=== PATIENT | male | born 1965 | race Caucasian/White ===

== ENCOUNTER 2020-08-13 08:38 | Outpatient (CLI) | payer OTHER, SELFPAY ==
[2020-08-13 09:14] LABS: Hematocrit 43.4 % (42.0-52.0); Hemoglobin 14.8 g/dL (14.0-18.0); Mean Corpuscular HGB Conc 34.1 g/dl (32-36); Mean Corpuscular Hemoglobin 30.6 pg (26-34); Mean Corpuscular Volume 89.9 fl (80-100); Mean Platelet Volume 9.4 fl (7.4-10.4); Platelet Count Result 274 k/mm3 (150-375); Red Blood Count 4.83 M/mm3 (4.6-6.20); Red Cell Distribution Width 12.5 % (11.5-14.5); White Blood Count 7.1 K/mm3 (4.5-10.0)
[2020-08-13 09:20] LABS: Alanine Aminotransferase 40 U/L (4-50); Albumin Level 4.4 g/dL (3.5-5.1); Alkaline Phosphatase 79 U/L (38-126); Anion Gap 8 mmol/L (8-16); Aspartate Amino Transferase 31 U/L (17-59); Bilirubin,Total 0.4 mg/dL (0.2-1.3); Blood Urea Nitrogen 9 mg/dL (9-20); Calcium 9.2 mg/dL (8.4-10.2); Carbon Dioxide 28 mmol/L (22-30); Chloride 105 mmol/L (98-107); Cholesterol 149 mg/dL (0-200); Estimated Glomerular Filt Rate > 60; Glucose 103 mg/dL (75-110); HDL Direct 43 mg/dL; Magnesium 1.9 mg/dL (1.6-2.3); Sodium 141 mmol/L (137-145); Triglycerides 83 mg/dL (<150)
[2020-08-13 09:33] LABS: LDL Cholesterol Direct 101 mg/dL
[2020-08-13 09:51] LABS: Prostate Specific Antigen 0.6 ng/mL (< OR = 4.0)
== END 2020-08-13 08:39 | disposition home or self-care (01) ==
PROVIDERS: PCP Physician Assistant; Visit Provider Physician Assistant
DX: Z00.00 Encounter for general adult medical examination without abnormal findings (principal); Z12.5 Encounter for screening for malignant neoplasm of prostate; I10 Essential (primary) hypertension
CPT/HCPCS: 36415; 80053; 80061; 83735; 84153; 84443; 85027; G0103

== ENCOUNTER 2020-10-05 09:15 | Outpatient (CLI) | payer OTHER, SELFPAY ==
[2020-10-05 09:53] LABS: Basophils Percent Auto 0.3 % (0.2-1.2); Eosinophils Absolute Auto 0.1 K/mm3 (0-0.3); Eosinophils Percent Auto 2.1 % (0-4.4); Hematocrit 42.9 % (42.0-52.0); Hemoglobin 14.4 g/dL (14.0-18.0); Immature Granulocyte Absolute 0.02 K/mm3 (0.00-0.031); Immature Granulocyte Percent A 0.5 % (0-0.5); Lymphocytes Absolute Auto 0.82 K/mm3 (0.9-3.2); Lymphocytes Percent Auto 21.6 % (18.3-44.2); Mean Corpuscular HGB Conc 33.6 g/dl (32-36); Mean Corpuscular Hemoglobin 29.5 pg (26-34); Mean Corpuscular Volume 87.9 fl (80-100); Mean Platelet Volume 9.8 fl (7.4-10.4); Monocytes Absolute Auto 0.4 K/mm3 (0.1-0.6); Neutrophils Absolute Auto 2.5 K/mm3 (1.3-6.7); Neutrophils Percent Auto 65.5 % (45.5-73.1); Platelet Count Result 242 k/mm3 (150-375); Red Blood Count 4.88 M/mm3 (4.6-6.20); Red Cell Distribution Width 12.6 % (11.5-14.5); White Blood Count 3.8 K/mm3 (4.5-10.0)
[2020-10-05 10:03] LABS: INR 0.9; Prothrombin Time 13.1 Seconds (11.1-14.7)
[2020-10-05 10:04] LABS: Partial Thromboplastin Time 26.2 SECONDS (22.3-36.8)
[2020-10-05 10:07] LABS: Alanine Aminotransferase 24 U/L (4-50); Albumin Level 4.2 g/dL (3.5-5.1); Alkaline Phosphatase 65 U/L (38-126); Anion Gap 8 mmol/L (8-16); Aspartate Amino Transferase 32 U/L (17-59); Bilirubin,Total 0.5 mg/dL (0.2-1.3); Blood Urea Nitrogen 5 mg/dL (9-20); Carbon Dioxide 29 mmol/L (22-30); Chloride 102 mmol/L (98-107); Cholesterol 104 mg/dL (0-200); Estimated Glomerular Filt Rate > 60; Glucose 99 mg/dL (75-110); HDL Direct 24 mg/dL; Potassium 3.8 mmol/L (3.4-5.0); Sodium 139 mmol/L (137-145); Triglycerides 134 mg/dL (<150)
[2020-10-05 10:18] LABS: LDL Cholesterol Direct 54 mg/dL
== END 2020-10-05 09:16 | disposition home or self-care (01) ==
PROVIDERS: PCP Physician Assistant
DX: L40.0 Psoriasis vulgaris (principal); Z51.81 Encounter for therapeutic drug level monitoring; Z79.899 Other long term (current) drug therapy
CPT/HCPCS: 36415; 80053; 80061; 85025; 85610; 85730

== ENCOUNTER 2020-11-15 08:23 | Outpatient (CLI) | payer OTHER, SELFPAY ==
[2020-11-15 09:16] LABS: Cholesterol 141 mg/dL (0-200); HDL Direct 28 mg/dL; Triglycerides 97 mg/dL (<150)
[2020-11-15 09:27] LABS: LDL Cholesterol Direct 90 mg/dL
== END 2020-11-15 08:24 | disposition home or self-care (01) ==
LOC: ANHLAB 08:27
PROVIDERS: PCP Physician Assistant
DX: L40.0 Psoriasis vulgaris (principal); Z79.899 Other long term (current) drug therapy
CPT/HCPCS: 36415; 80061

== ENCOUNTER 2021-01-16 14:43 | Outpatient (CLI) | payer OTHER, SELFPAY | END 2021-01-16 14:44 | disposition home or self-care (01) | LOC: ANHCOVIDVC 14:43 | PROVIDERS: PCP Physician Assistant | DX: Z23 Encounter for immunization (principal) | CPT/HCPCS: 0001A; 91300 ==

== ENCOUNTER 2021-02-06 14:42 | Outpatient (CLI) | payer OTHER, SELFPAY | END 2021-02-06 14:43 | disposition home or self-care (01) | LOC: ANHCOVIDVC 14:42 | PROVIDERS: PCP Physician Assistant | DX: Z23 Encounter for immunization (principal) | CPT/HCPCS: 0002A; 91300 ==

== ENCOUNTER 2021-02-15 08:02 | Outpatient (CLI) | payer OTHER, SELFPAY ==
[2021-02-15 12:25] LABS: Alanine Aminotransferase 23 U/L (4-50); Albumin Level 4.1 g/dL (3.5-5.1); Alkaline Phosphatase 65 U/L (38-126); Aspartate Amino Transferase 23 U/L (17-59); Bilirubin,Total 0.2 mg/dL (0.2-1.3); Cholesterol 120 mg/dL (0-200); HDL Direct 31 mg/dL; Triglycerides 57 mg/dL (<150)
[2021-02-15 12:37] LABS: LDL Cholesterol Direct 80 mg/dL
== END 2021-02-15 08:03 | disposition home or self-care (01) ==
PROVIDERS: PCP Physician Assistant
DX: L40.0 Psoriasis vulgaris (principal); Z79.899 Other long term (current) drug therapy
CPT/HCPCS: 36415; 80061; 80076

== ENCOUNTER 2021-04-13 08:49 | Outpatient (CLI) | payer OTHER, SELFPAY ==
[2021-04-13 09:37] LABS: Cholesterol 122 mg/dL (0-200); HDL Direct 30 mg/dL; Triglycerides 44 mg/dL (<150)
[2021-04-13 09:48] LABS: LDL Cholesterol Direct 74 mg/dL
== END 2021-04-13 08:50 | disposition home or self-care (01) ==
PROVIDERS: PCP Physician Assistant
DX: L40.0 Psoriasis vulgaris (principal); Z79.899 Other long term (current) drug therapy
CPT/HCPCS: 36415; 80061

== ENCOUNTER 2021-04-24 07:49 | Outpatient (CLI) | payer OTHER, SELFPAY ==
[2021-04-24 13:10] LABS: Basophils Percent Auto 0.4 % (0.2-1.2); Eosinophils Absolute Auto 0.1 K/mm3 (0-0.3); Eosinophils Percent Auto 1.4 % (0-4.4); Hematocrit 39.5 % (42.0-52.0); Hemoglobin 12.9 g/dL (14.0-18.0); Immature Granulocyte Absolute 0.01 K/mm3 (0.00-0.031); Immature Granulocyte Percent A 0.2 % (0-0.5); Lymphocytes Absolute Auto 1.49 K/mm3 (0.9-3.2); Lymphocytes Percent Auto 26.1 % (18.3-44.2); Mean Corpuscular HGB Conc 32.7 g/dl (32-36); Mean Corpuscular Hemoglobin 29.3 pg (26-34); Mean Corpuscular Volume 89.8 fl (80-100); Mean Platelet Volume 9.8 fl (7.4-10.4); Monocytes Absolute Auto 0.4 K/mm3 (0.1-0.6); Neutrophils Absolute Auto 3.7 K/mm3 (1.3-6.7); Neutrophils Percent Auto 64.9 % (45.5-73.1); Platelet Count Result 264 k/mm3 (150-375); Red Cell Distribution Width 13.8 % (11.5-14.5); White Blood Count 5.7 K/mm3 (4.5-10.0)
[2021-04-24 13:27] LABS: Alanine Aminotransferase 22 U/L (4-50); Albumin Level 4.2 g/dL (3.5-5.1); Alkaline Phosphatase 66 U/L (38-126); Anion Gap 11 mmol/L (8-16); Aspartate Amino Transferase 23 U/L (17-59); Bilirubin,Total 0.3 mg/dL (0.2-1.3); Blood Urea Nitrogen 7 mg/dL (9-20); Calcium 9.1 mg/dL (8.4-10.2); Carbon Dioxide 25 mmol/L (22-30); Chloride 105 mmol/L (98-107); Estimated Glomerular Filt Rate > 60; Glucose 95 mg/dL (75-110); Potassium 4.2 mmol/L (3.4-5.0); Sodium 141 mmol/L (137-145)
[2021-04-24 13:54] LABS: Hepatitis B Surface Antigen Negative (Negative)
[2021-04-24 14:00] LABS: HAV RESULT Negative (Negative); Hepatitis B Core IgM Result Negative (Negative)
[2021-04-24 14:03] LABS: HIV 1/2 Ab P24 Ag Result Negative (Negative)
[2021-04-24 14:11] LABS: Hepatitis C Virus Antibody Negative (Negative)
[2021-04-27 21:46] LABS: NIL 0.02 IU/mL; Quantiferon TB Plus, 1T NEGATIVE (NEGATIVE)
== END 2021-04-24 07:50 | disposition home or self-care (01) ==
LOC: ANHWCLAB 07:54
PROVIDERS: PCP Physician Assistant
DX: Z51.81 Encounter for therapeutic drug level monitoring (principal); Z79.899 Other long term (current) drug therapy; L40.0 Psoriasis vulgaris
CPT/HCPCS: 36415; 80053; 80074; 85025; 86480; 86703; G0432

== ENCOUNTER 2021-08-20 07:25 | Outpatient (CLI) | payer OTHER, SELFPAY ==
[2021-08-20 12:40] LABS: Hematocrit 42.4 % (42.0-52.0); Mean Platelet Volume 10.3 fl (7.4-10.4); Platelet Count Result 250 k/mm3 (150-375); Red Blood Count 4.51 M/mm3 (4.6-6.20); Red Cell Distribution Width 13.6 % (11.5-14.5); White Blood Count 5.5 K/mm3 (4.5-10.0)
[2021-08-20 14:07] LABS: LDL Cholesterol Direct 70 mg/dL
[2021-08-20 14:39] LABS: Alanine Aminotransferase 25 U/L (4-50); Albumin Level 4.1 g/dL (3.5-5.1); Alkaline Phosphatase 53 U/L (38-126); Anion Gap 8 mmol/L (8-16); Aspartate Amino Transferase 28 U/L (17-59); Bilirubin,Total 0.2 mg/dL (0.2-1.3); Blood Urea Nitrogen 7 mg/dL (9-20); Calcium 8.9 mg/dL (8.4-10.2); Carbon Dioxide 27 mmol/L (22-30); Chloride 106 mmol/L (98-107); Cholesterol 118 mg/dL (0-200); Estimated Glomerular Filt Rate > 60; Glucose 104 mg/dL (65-110); HDL Direct 46 mg/dL; Potassium 4.2 mmol/L (3.4-5.0); Sodium 141 mmol/L (137-145); Triglycerides 34 mg/dL (<150)
[2021-08-20 16:50] LABS: Prostate Specific Antigen 0.5 ng/mL (< OR = 4.0)
[2021-08-20 19:15] LABS: Folic Acid > 20.0 ng/mL (2.76->20)
== END 2021-08-20 07:26 | disposition home or self-care (01) ==
LOC: ANHWCLAB 07:28
PROVIDERS: PCP Physician Assistant; Visit Provider Physician Assistant
DX: Z12.5 Encounter for screening for malignant neoplasm of prostate (principal); Z00.00 Encounter for general adult medical examination without abnormal findings
CPT/HCPCS: 36415; 80053; 80061; 82607; 82746; 84153; 84443; 85027; G0103

== ENCOUNTER 2021-10-24 00:38 | Day surgery (SDC) | payer OTHER, SELFPAY ==
[2021-10-11 14:55] VITALS: BMI 35.1
--- NOTE | 2021-10-23 14:22 | PM.HPGS ---
History of Present Illness History of Present Illness Consent: Risks, benefits, and alternatives have been discussed and questions answered. Patient agrees to proceed with procedure. Chief complaint: hx of colon polyps, family hx of colon ca Narrative: Tee Isaacs is a 56 year old male referred for colon cancer screening. He had a polyp removed 5 years ago. His sister had colon cancer Review of Systems Review of Systems: All systems reviewed & are unremarkable except as noted in HPI and below PMFSH Past Medical History Medical History Hyperlipidemia Hypertension Family History Family History Mother Hypertension Father Cerebrovascular accident Sibling Carcinoma of colon Patient's sister is Father Cerebrovascular accident Mother Hypertension Sibling Colon cancer Social History Social History Smoking status: Former smoker Second hand tobacco smoke exposure: No Alcohol intake: current Alcohol use details: 15 drinks/week Substance use: never Substance use type: does not use Living arrangements: with family Meds Home Medications and Allergies Home Medications Medication Instructions Recorded Confirmed Type diphenhydramine HCl 25 mg tablet 25 mg PO Q6H PRN 08/17/20 10/11/21 History lysine 500 mg tablet 500 mg PO DAILY 08/17/20 10/11/21 History multivitamin 1 tablet PO DAILY 08/17/20 10/11/21 History atorvastatin 10 mg tablet 10 mg PO DAILY #90 tablet 05/20/21 10/11/21 Rx sertraline 50 mg tablet See Rx Instructions .ROUTE 06/10/21 10/11/21 Rx .COMPLEX #90 tablet alprazolam 0.5 mg tablet 0.5 mg PO BID PRN #180 tablet 08/23/21 10/24/21 Rx apple cider vinegar 500 mg tablet 500 mg PO DAILY 08/23/21 10/11/21 History lisinopril 10 mg tablet 10 mg PO DAILY #90 tablet 08/23/21 10/11/21 Rx omega-3 fatty acids 500 mg capsule 500 mg PO DAILY 08/23/21 10/11/21 History risankizumab-rzaa 150 mg SUBCUT ONCE #1 ea 08/25/21 10/11/21 Rx Allergies Allergy/AdvReac Type Severity Reaction Status Date / Time No Known Allergies Allergy Verified 10/24/21 08:30 Exam Resp: Auscultation: clear to auscultation bilaterally Cardio: Rate: regular rate Rhythm: regular rhythm GI: GI Palp: Yes Soft to palpation and No Tenderness to palpation present (GI) Assessment and Plan Assessment and plan (1) Colon cancer screening: Code(s): Z12.11 - Encounter for screening for malignant neoplasm of colon Status: Acute Assessment and Plan: Colonoscopy with possible biopsy or polypectomy or cautery or injection of substances.
[2021-10-24 08:31] VITALS: BP 130/90; PULSE 71; RESP 18; TEMP 36.6; O2SAT 96
--- NOTE | 2021-10-24 08:34 | P.PNAN_ITS ---
Anes - Initial Pre Proc Eval Procedure: Operation Date: 10/24/21 09:30 Proposed Procedures p Screening Colonoscopy - Guilherme Porter MD Date/Time: 10/24/21 08:34 Surgeon: Guilherme Porter MD Pre Op Diagnosis: hx of colon polyps, family hx of colon ca Patient Data Age: 56 Gender: M Height: 1.78 m Weight: 111 kg Last Vital Signs Temp 36.6 C 10/24/21 08:31 Pulse 71 10/24/21 08:31 Resp 18 10/24/21 08:31 BP 130/90 10/24/21 08:31 Pulse Ox 96 10/24/21 08:31 Allergies Allergy/AdvReac Type Severity Reaction Status Date / Time No Known Allergies Allergy Verified 10/24/21 08:30 Home Medications Medication Instructions Recorded Confirmed Type diphenhydramine HCl 25 mg tablet 25 mg PO Q6H PRN 08/17/20 10/11/21 History lysine 500 mg tablet 500 mg PO DAILY 08/17/20 10/11/21 History multivitamin 1 tablet PO DAILY 08/17/20 10/11/21 History atorvastatin 10 mg tablet 10 mg PO DAILY #90 tablet 05/20/21 10/11/21 Rx sertraline 50 mg tablet See Rx Instructions .ROUTE 06/10/21 10/11/21 Rx .COMPLEX #90 tablet alprazolam 0.5 mg tablet 0.5 mg PO BID PRN #180 tablet 08/23/21 10/24/21 Rx apple cider vinegar 500 mg tablet 500 mg PO DAILY 08/23/21 10/11/21 History lisinopril 10 mg tablet 10 mg PO DAILY #90 tablet 08/23/21 10/11/21 Rx omega-3 fatty acids 500 mg capsule 500 mg PO DAILY 08/23/21 10/11/21 History risankizumab-rzaa 150 mg SUBCUT ONCE #1 ea 08/25/21 10/11/21 Rx Patient hx anesthesia problems: none Family hx anesthesia problems: none Results Review: All pre-operative results and documents have been reviewed as part of the pre-operative evaluation. [facility] Past Medical History Medical History (Updated 10/24/21 @ 07:40 by Zain Nobles DO) Hyperlipidemia Hypertension Family History Family History Mother Hypertension Father Cerebrovascular accident Sibling Carcinoma of colon Patient's sister is Father Cerebrovascular accident Mother Hypertension Sibling Colon cancer Social History Social History Smoking status: Former smoker Second hand tobacco smoke exposure: No Alcohol intake: current Alcohol use details: 15 drinks/week Substance use: never Substance use type: does not use Living arrangements: with family Anes - Eval Final PreProcedure Day of Procedure 10/24/21 08:34 Patient weight: obese Heart: regular rate and rhythm Lungs: clear to auscultation and normal air movement Airway: Mallampati scale class III Neurological: alert and oriented Last oral intake: >/= 8 hours ASA classification: III Emergent: no Anesthetic plan: proceed Anesthesia type and monitoring: general GIVS and standard monitoring Results Review: All pre-operative results and documents have been reviewed as part of the pre-operative evaluation. Informed Consent: The patient's anesthetic plan and its attendant risks and robyn efits were discussed with the patient/family/POA. Questions were solicited and answers provided to the satisfaction of the patient/family/POA.
[2021-10-24] MEDS: LACTATED RINGERS 1,000 ML 150 ML IV CONT (08:48)
[2021-10-24 09:44] VITALS: BP 124/69; PULSE 75; RESP 18; O2SAT 100
[2021-10-24] MEDS: SIMETHICONE ORAL SUSPENSION 20 MG/0.3 ML 30 ML BOTTLE 0.6 ML IRRIGATION (09:44)
[2021-10-24 09:54] VITALS: BP 130/83; PULSE 65; RESP 18; O2SAT 98
[2021-10-24 10:01] VITALS: BP 132/92; PULSE 66; RESP 18; O2SAT 100
== END 2021-10-24 10:09 | disposition home or self-care (01) ==
PROVIDERS: PCP Physician Assistant; Visit Provider Internal Medicine Gastroenterology
PROC: 0DJD8ZZ Inspection of Lower Intestinal Tract, Via Natural or Artificial Opening Endoscopic (ICD-10-PCS; CPT 45378; principal; 2021-10-24 09:30)
DX: Z12.11 Encounter for screening for malignant neoplasm of colon (principal); K64.8 Other hemorrhoids; K57.30 Diverticulosis of large intestine without perforation or abscess without bleeding; Z80.0 Family history of malignant neoplasm of digestive organs; Z86.010 Personal history of colon polyps; I10 Essential (primary) hypertension; E78.5 Hyperlipidemia, unspecified; Z87.891 Personal history of nicotine dependence; E66.9 Obesity, unspecified; Z68.35 Body mass index [BMI] 35.0-35.9, adult
CPT/HCPCS: 45378; J2001; J2704; J7120

== ENCOUNTER 2022-06-02 07:40 | Outpatient (CLI) | payer OTHER, SELFPAY ==
[2022-06-02 13:18] LABS: Basophils Percent Auto 0.4 % (0.2-1.2); Eosinophils Absolute Auto 0.1 K/mm3 (0-0.3); Hematocrit 45.1 % (42.0-52.0); Hemoglobin 14.5 g/dL (14.0-18.0); Immature Granulocyte Absolute 0.01 K/mm3 (0.00-0.031); Immature Granulocyte Percent A 0.2 % (0-0.5); Lymphocytes Percent Auto 29.8 % (18.3-44.2); Mean Corpuscular HGB Conc 32.2 g/dl (32-36); Mean Corpuscular Hemoglobin 30.7 pg (26-34); Mean Corpuscular Volume 95.6 fl (80-100); Mean Platelet Volume 10.1 fl (7.4-10.4); Monocytes Absolute Auto 0.4 K/mm3 (0.1-0.6); Monocytes Percent Auto 8.1 % (2.6-8.5); Neutrophils Absolute Auto 3.1 K/mm3 (1.3-6.7); Neutrophils Percent Auto 60.5 % (45.5-73.1); Platelet Count Result 219 k/mm3 (150-375); Red Blood Count 4.72 M/mm3 (4.6-6.20); Red Cell Distribution Width 13.4 % (11.5-14.5)
[2022-06-02 13:24] LABS: Alanine Aminotransferase 23 U/L (6-50); Albumin Level 4.5 g/dL (3.5-5.1); Alkaline Phosphatase 58 U/L (38-126); Anion Gap 10 mmol/L (8-16); Aspartate Amino Transferase 47 U/L (17-59); Bilirubin,Total 0.6 mg/dL (0.2-1.3); Blood Urea Nitrogen 11 mg/dL (9-20); Calcium 8.8 mg/dL (8.4-10.2); Carbon Dioxide 26 mmol/L (22-30); Chloride 105 mmol/L (98-107); Estimated Glomerular Filt Rate > 60; Glucose 95 mg/dL (65-110); Potassium 4.1 mmol/L (3.4-5.0); Sodium 141 mmol/L (137-145)
[2022-06-04 13:07] LABS: NIL 0.01 IU/mL; Quantiferon TB Plus, 1T NEGATIVE (NEGATIVE)
== END 2022-06-02 07:41 | disposition home or self-care (01) ==
PROVIDERS: PCP Physician Assistant
DX: L40.0 Psoriasis vulgaris (principal); Z79.899 Other long term (current) drug therapy
CPT/HCPCS: 36415; 80053; 85025; 86480

== ENCOUNTER 2022-11-17 08:01 | Outpatient (CLI) | payer OTHER, SELFPAY ==
[2022-11-17 18:34] LABS: Cholesterol 140 mg/dL (0-200); HDL Direct 53 mg/dL; Triglycerides 35 mg/dL (<150)
[2022-11-17 18:46] LABS: LDL Cholesterol Direct 63 mg/dL
[2022-11-17 19:09] LABS: Prostate Specific Antigen 0.6 ng/mL (< OR = 4.0)
[2022-11-17 20:13] LABS: Folic Acid > 20.0 ng/mL (2.76->20)
== END 2022-11-17 08:02 | disposition home or self-care (01) ==
LOC: ANHWCLAB 08:02
PROVIDERS: PCP Physician Assistant; Visit Provider Physician Assistant
DX: Z00.00 Encounter for general adult medical examination without abnormal findings (principal); Z12.5 Encounter for screening for malignant neoplasm of prostate
CPT/HCPCS: 36415; 80061; 82607; 82746; 84153; 84443; G0103

== ENCOUNTER 2022-12-15 08:14 | Outpatient (CLI) | payer OTHER, SELFPAY ==
[2022-12-15 12:47] LABS: Creatine Kinase 49 U/L (55-170)
== END 2022-12-15 08:15 | disposition home or self-care (01) ==
LOC: ANHWCLAB 08:29
PROVIDERS: PCP Physician Assistant
DX: L40.0 Psoriasis vulgaris (principal); Z79.899 Other long term (current) drug therapy
CPT/HCPCS: 36415; 82550

== ENCOUNTER 2023-02-09 08:00 | Outpatient (CLI) | payer OTHER, SELFPAY ==
[2023-02-09 16:46] LABS: Basophils Percent Auto 0.4 % (0.2-1.2); Eosinophils Absolute Auto 0.1 K/mm3 (0-0.3); Eosinophils Percent Auto 1.7 % (0-4.4); Hematocrit 44.6 % (42.0-52.0); Hemoglobin 14.8 g/dL (14.0-18.0); Immature Granulocyte Absolute 0.01 K/mm3 (0.00-0.031); Immature Granulocyte Percent A 0.2 % (0-0.5); Lymphocytes Percent Auto 32.3 % (18.3-44.2); Mean Corpuscular HGB Conc 33.2 g/dl (32-36); Mean Corpuscular Hemoglobin 31.6 pg (26-34); Mean Corpuscular Volume 95.1 fl (80-100); Mean Platelet Volume 10.1 fl (7.4-10.4); Monocytes Absolute Auto 0.4 K/mm3 (0.1-0.6); Monocytes Percent Auto 7.7 % (2.6-8.5); Neutrophils Absolute Auto 2.7 K/mm3 (1.3-6.7); Neutrophils Percent Auto 57.7 % (45.5-73.1); Platelet Count Result 225 k/mm3 (150-375); Red Blood Count 4.69 M/mm3 (4.6-6.20); Red Cell Distribution Width 12.6 % (11.5-14.5); White Blood Count 4.7 K/mm3 (4.5-10.0)
[2023-02-09 17:41] LABS: Alanine Aminotransferase 31 U/L (6-50); Albumin Level 4.4 g/dL (3.5-5.1); Alkaline Phosphatase 54 U/L (38-126); Aspartate Amino Transferase 47 U/L (17-59); Bilirubin,Total 0.6 mg/dL (0.2-1.3)
== END 2023-02-09 08:01 | disposition home or self-care (01) ==
LOC: ANHWCLAB 08:03
PROVIDERS: PCP Physician Assistant
DX: L40.0 Psoriasis vulgaris (principal); Z79.899 Other long term (current) drug therapy
CPT/HCPCS: 36415; 80076; 85025

== ENCOUNTER 2023-03-16 08:34 | Outpatient (CLI) | payer OTHER, SELFPAY ==
[2023-03-16 17:19] LABS: Basophils Percent Auto 0.5 % (0.2-1.2); Eosinophils Absolute Auto 0.1 K/mm3 (0-0.3); Eosinophils Percent Auto 1.1 % (0-4.4); Hematocrit 45.1 % (42.0-52.0); Hemoglobin 14.8 g/dL (14.0-18.0); Immature Granulocyte Absolute 0.01 K/mm3 (0.00-0.031); Immature Granulocyte Percent A 0.2 % (0-0.5); Lymphocytes Absolute Auto 1.57 K/mm3 (0.9-3.2); Lymphocytes Percent Auto 28.8 % (18.3-44.2); Mean Corpuscular HGB Conc 32.8 g/dl (32-36); Mean Corpuscular Hemoglobin 31.8 pg (26-34); Mean Corpuscular Volume 96.8 fl (80-100); Mean Platelet Volume 9.9 fl (7.4-10.4); Monocytes Absolute Auto 0.4 K/mm3 (0.1-0.6); Monocytes Percent Auto 6.6 % (2.6-8.5); Neutrophils Absolute Auto 3.4 K/mm3 (1.3-6.7); Neutrophils Percent Auto 62.8 % (45.5-73.1); Platelet Count Result 225 k/mm3 (150-375); Red Blood Count 4.66 M/mm3 (4.6-6.20); Red Cell Distribution Width 13.2 % (11.5-14.5); White Blood Count 5.5 K/mm3 (4.5-10.0)
[2023-03-16 17:26] LABS: Alanine Aminotransferase 32 U/L (6-50); Albumin Level 4.5 g/dL (3.5-5.1); Alkaline Phosphatase 55 U/L (38-126); Aspartate Amino Transferase 75 U/L (17-59); Bilirubin,Total 0.5 mg/dL (0.2-1.3)
== END 2023-03-16 08:35 | disposition home or self-care (01) ==
LOC: ANHWCLAB 08:36
PROVIDERS: PCP Physician Assistant
DX: L40.0 Psoriasis vulgaris (principal); Z79.899 Other long term (current) drug therapy
CPT/HCPCS: 36415; 80076; 85025

== ENCOUNTER 2023-03-30 08:35 | Outpatient (CLI) | payer OTHER, SELFPAY ==
[2023-03-30 13:10] LABS: Alanine Aminotransferase 36 U/L (6-50); Albumin Level 4.4 g/dL (3.5-5.1); Alkaline Phosphatase 57 U/L (38-126); Aspartate Amino Transferase 60 U/L (17-59); Bilirubin,Total 0.6 mg/dL (0.2-1.3)
== END 2023-03-30 08:36 | disposition home or self-care (01) ==
LOC: ANHWCLAB 08:37
PROVIDERS: PCP Physician Assistant
DX: L40.0 Psoriasis vulgaris (principal); Z79.899 Other long term (current) drug therapy
CPT/HCPCS: 36415; 80076

== ENCOUNTER 2023-04-21 08:18 | Outpatient (CLI) | payer OTHER, SELFPAY ==
[2023-04-21 12:47] LABS: Basophils Percent Auto 0.4 % (0.2-1.2); Eosinophils Absolute Auto 0.1 K/mm3 (0-0.3); Eosinophils Percent Auto 1.1 % (0-4.4); Hematocrit 43.2 % (42.0-52.0); Hemoglobin 14.6 g/dL (14.0-18.0); Immature Granulocyte Absolute 0.01 K/mm3 (0.00-0.031); Immature Granulocyte Percent A 0.2 % (0-0.5); Lymphocytes Absolute Auto 1.41 K/mm3 (0.9-3.2); Lymphocytes Percent Auto 30.4 % (18.3-44.2); Mean Corpuscular HGB Conc 33.8 g/dl (32-36); Mean Corpuscular Hemoglobin 31.8 pg (26-34); Mean Corpuscular Volume 94.1 fl (80-100); Mean Platelet Volume 10.5 fl (7.4-10.4); Monocytes Absolute Auto 0.3 K/mm3 (0.1-0.6); Neutrophils Absolute Auto 2.9 K/mm3 (1.3-6.7); Neutrophils Percent Auto 61.9 % (45.5-73.1); Platelet Count Result 209 k/mm3 (150-375); Red Blood Count 4.59 M/mm3 (4.6-6.20); Red Cell Distribution Width 12.9 % (11.5-14.5); White Blood Count 4.6 K/mm3 (4.5-10.0)
[2023-04-21 13:02] LABS: Alanine Aminotransferase 28 U/L (6-50); Albumin Level 4.1 g/dL (3.5-5.1); Alkaline Phosphatase 47 U/L (38-126); Anion Gap 5 mmol/L (8-16); Aspartate Amino Transferase 27 U/L (17-59); Bilirubin,Total 0.5 mg/dL (0.2-1.3); Blood Urea Nitrogen 9 mg/dL (9-20); Calcium 8.5 mg/dL (8.4-10.2); Carbon Dioxide 26 mmol/L (22-30); Chloride 107 mmol/L (98-107); Cholesterol 141 mg/dL (0-200); Estimated Glomerular Filt Rate > 60; Glucose 93 mg/dL (65-110); HDL Direct 45 mg/dL; Potassium 4.1 mmol/L (3.4-5.0); Sodium 138 mmol/L (137-145); Triglycerides 76 mg/dL (<150)
[2023-04-21 13:13] LABS: LDL Cholesterol Direct 85 mg/dL
[2023-04-21 13:31] LABS: Hepatitis B Surface Antigen Negative (Negative)
[2023-04-21 13:48] LABS: Hepatitis B Surface Anti Res Negative; Hepatitis C Virus Antibody Negative (Negative)
[2023-04-23 16:13] LABS: NIL 0.02 IU/mL; Quantiferon TB Plus, 1T NEGATIVE (NEGATIVE)
[2023-04-26 03:47] LABS: Hepatitis B Core Ab Total Nonreactive (Nonreactive)
== END 2023-04-21 08:19 | disposition home or self-care (01) ==
LOC: ANHWCLAB 08:21
PROVIDERS: PCP Physician Assistant
DX: R21 Rash and other nonspecific skin eruption (principal)
CPT/HCPCS: 36415; 80053; 80061; 85025; 86480; 86704; 86706; 86803; 87340

== ENCOUNTER 2023-08-31 08:57 | Outpatient (CLI) | payer OTHER, SELFPAY ==
[2023-08-31 12:33] LABS: Basophils Percent Auto 0.5 % (0.2-1.2); Eosinophils Percent Auto 0.5 % (0-4.4); Hematocrit 39.3 % (42.0-52.0); Hemoglobin 13.2 g/dL (14.0-18.0); Immature Granulocyte Absolute 0.02 K/mm3 (0.00-0.031); Immature Granulocyte Percent A 0.5 % (0-0.5); Lymphocytes Percent Auto 35.2 % (18.3-44.2); Mean Corpuscular HGB Conc 33.6 g/dl (32-36); Mean Corpuscular Hemoglobin 32.6 pg (26-34); Monocytes Absolute Auto 0.3 K/mm3 (0.1-0.6); Neutrophils Absolute Auto 2.2 K/mm3 (1.3-6.7); Neutrophils Percent Auto 55.3 % (45.5-73.1); Platelet Count Result 252 k/mm3 (150-375); Red Blood Count 4.05 M/mm3 (4.6-6.20); Red Cell Distribution Width 12.6 % (11.5-14.5)
[2023-08-31 12:41] LABS: Alanine Aminotransferase 34 U/L (6-50); Albumin Level 4.2 g/dL (3.5-5.1); Alkaline Phosphatase 44 U/L (38-126); Anion Gap 6 mmol/L (8-16); Aspartate Amino Transferase 60 U/L (17-59); Bilirubin,Total 0.6 mg/dL (0.2-1.3); Blood Urea Nitrogen 9 mg/dL (9-20); Calcium 8.9 mg/dL (8.4-10.2); Carbon Dioxide 25 mmol/L (22-30); Chloride 106 mmol/L (98-107); Cholesterol 182 mg/dL (0-200); Estimated Glomerular Filt Rate > 60; Glucose 93 mg/dL (65-110); HDL Direct 58 mg/dL; Potassium 4.1 mmol/L (3.4-5.0); Sodium 137 mmol/L (137-145); Triglycerides 90 mg/dL (<150)
[2023-08-31 12:52] LABS: LDL Cholesterol Direct 96 mg/dL
== END 2023-08-31 08:58 | disposition home or self-care (01) ==
LOC: ANHWCLAB 08:58
PROVIDERS: PCP Physician Assistant
DX: R21 Rash and other nonspecific skin eruption (principal)
CPT/HCPCS: 36415; 80053; 80061; 85025

== ENCOUNTER 2024-08-12 09:08 | Outpatient (CLI) | payer OTHER, SELFPAY ==
[2024-08-12 09:35] LABS: Basophils Percent Auto 0.4 % (0.2-1.2); Eosinophils Absolute Auto 0.1 K/mm3 (0-0.3); Eosinophils Percent Auto 1.6 % (0-4.4); Hematocrit 44.6 % (42.0-52.0); Hemoglobin 15.3 g/dL (14.0-18.0); Immature Granulocyte Absolute 0.02 K/mm3 (0.00-0.031); Immature Granulocyte Percent A 0.4 % (0-0.5); Lymphocytes Absolute Auto 1.51 K/mm3 (0.9-3.2); Lymphocytes Percent Auto 26.7 % (18.3-44.2); Mean Corpuscular HGB Conc 34.3 g/dl (32-36); Mean Corpuscular Hemoglobin 31.6 pg (26-34); Mean Corpuscular Volume 92.1 fl (80-100); Mean Platelet Volume 9.6 fl (7.4-10.4); Monocytes Absolute Auto 0.4 K/mm3 (0.1-0.6); Monocytes Percent Auto 7.8 % (2.6-8.5); Neutrophils Absolute Auto 3.6 K/mm3 (1.3-6.7); Neutrophils Percent Auto 63.1 % (45.5-73.1); Platelet Count Result 260 k/mm3 (150-375); Red Blood Count 4.84 M/mm3 (4.6-6.20); Red Cell Distribution Width 12.7 % (11.5-14.5); White Blood Count 5.7 K/mm3 (4.5-10.0)
[2024-08-12 09:56] LABS: Hemoglobin A1C 5.6 % (<5.7)
[2024-08-12 09:57] LABS: LDL Cholesterol Direct 77 mg/dL
[2024-08-12 10:00] LABS: Alanine Aminotransferase 31 U/L (6-50); Albumin Level 4.6 g/dL (3.5-5.1); Alkaline Phosphatase 52 U/L (38-126); Anion Gap 6 mmol/L (4-12); Aspartate Amino Transferase 34 U/L (17-59); Bilirubin,Total 0.7 mg/dL (0.2-1.3); Blood Urea Nitrogen 9 mg/dL (9-20); Calcium 8.9 mg/dL (8.4-10.2); Carbon Dioxide 27 mmol/L (22-30); Chloride 104 mmol/L (98-107); Cholesterol 152 mg/dL (0-200); Estimated Glomerular Filt Rate > 60; Glucose 101 mg/dL (65-110); HDL Direct 45 mg/dL; Potassium 4.1 mmol/L (3.4-5.0); Sodium 137 mmol/L (137-145); Triglycerides 119 mg/dL (<150)
[2024-08-12 10:16] LABS: Prostate Specific Antigen 0.6 ng/mL (< OR = 4.0)
== END 2024-08-12 09:09 | disposition home or self-care (01) ==
PROVIDERS: PCP Family Medicine; Visit Provider Student in an Organized Health Care Education/Training Program
DX: E78.5 Hyperlipidemia, unspecified (principal); Z13.1 Encounter for screening for diabetes mellitus; Z12.5 Encounter for screening for malignant neoplasm of prostate; Z00.00 Encounter for general adult medical examination without abnormal findings
CPT/HCPCS: 36415; 80053; 80061; 83036; 84153; 85025; G0103

== ENCOUNTER 2025-02-17 10:11 | Outpatient (CLI) | payer OTHER, SELFPAY ==
--- OUTSIDE RECORDS SUMMARY | 2025-02-17 10:46 | XMS_ITS | Clinical Summary ---
Author Organization [facility] Address [address] [place] [address] Care Team Providers Care Pattern Maker Programer Name Role Phone Loco Mccloud PA-C Primary Care Provide r Source Comments [facility],non-owned Affiliates and Associated Physician Practices is amultiple site organization consisting of ambulatory clinics and hospital sitesin [place], [place], [place] and [place]. This disclosure is being madepursuant to the Care Everywhere program and may not contain all information available regarding this patient. Last updated 18.[facility] [employer] Allergies No known active allergies Medications * Be aware that medications may not be up to date on this document. Alwaysverify current medications with the patient. Medication Sig Dispensed Refills Start Date End Date Status atorvastatin (Lipitor) 10 MG tablet 01/25/2023 Active lisinopril (Prinivil; Zestril) 10 MG tablet 02/07/2023 Active sertraline (Zoloft) 50 MG tablet 02/21/2023 Active ALPRAZolam (Xanax) 0.5 MG tablet 06/22/2023 Active triamcinolone acetonide (Kenalog) 0.1 % ointment Apply to body twice daily. 30 days supply. 454 g 3 09/08/2023 Active clobetasol (Temovate) 0.05 % ointment Apply to affected area on the lower legs twice daily. 30 days supply. 60 g 5 09/08/2023 Active dupilumab (Dupixent) 300 MG/2ML prefilled penIndications:Samy pic Dermatitis Inject 600 mg subcutaneously on Day 1 Reasons: Atopic Dermatitis 4 mL 10/09/2023 Active dupilumab (Dupixent) 300 MG/2ML prefilled penIndications:Samy pic Dermatitis Inject 300 mg subcutaneously every 2 weeks starting on Day 15 Reasons: Atopic Dermatitis 4 mL 6 10/09/2023 Active Social History Tobacco Use Types Packs/Day Years Used Date Smoking Tobacco: Never Assessed Sex and Gender Information Value Date Recorded Sex Assigned at Not on file Gender Identity Not on file Sexual Orientation Not on file Plan of Treatment Health Maintenance Due Date Last Done Comments COLOGUARD (AGES 45-75) - COL ON CA SCREENING 1966 COLON MONITORING 1966 COLONOSCOPY - COLON CA SCREENING 1966 CT COLONOGRAPHY - COLON CA SCREENING 1966 Colorectal Cancer Screening 1966 FIT - COLON CA SCREENING 1966 FLEX SIG - COLON CA SCREENING 1966 HIV SCREENING 1981 HEPATITIS C SCREENING 12/31/1983 DTAP/TDAP/TD VACCINES (1 - Tdap) 1985 HEPATITIS B VACCINE (1 of 3 - 19+ 3-dose series) 1985 PNEUMOCOCCAL VACCINE 50+ (1 of 1 - PCV) 2016 ZOSTER VACCINE (1 of 2) 2016 COVID-19 VACCINE ( - 2023-2 5 season) 2024 DEPRESSION SCREENING 11/09/2024 INFLUENZA VACCINE (Season Ended) 2025 HIB VACCINE Aged Out No longer eligi ble based on patient's age to complete this topic HPV VACCINE Aged Out No longer eligi ble based on patient's age to complete this topic MENINGOCOCCAL (Group B) VACC INE SHARED DECISION-MAKING Aged Out No longer eligibl e based on patient's age to complete this topic MENINGOCOCCAL GROUPS A/C/Y/W VACCINE Aged Out No longer eligible b ased on patient's age to complete this topic PNEUMOCOCCAL VACCINE Aged Out No long er eligible based on patient's age to complete this topic Care Teams Pattern Maker Programer Relationship Specialty Start Date End Date Loco Mccloud PA-C [address] [place], [place] [phone] PCP - General Physician Medical Chemist 04/09/23
--- OUTSIDE RECORDS SUMMARY | 2025-02-17 10:46 | XMS_ITS | Encounter Summary ---
Author Organization [facility] Address [address] [facility] [place] [address] Care Team Providers Care Support Staff Name Role Phone Loco Mccloud PA-C Primary Care Provide r Encounter Details Date Type Department Care Team (Late st Contact Info) Description 04/03/2023 Lab Requisition [facility] - DermPath Lab [address] [place] [phone] Efren Ferraro MD [address] [place] [address] Social History Tobacco Use Types Packs/Day Years Used Date Smoking Tobacco: Never Assessed Sex and Gender Information Value Date Recorded Sex Assigned at Not on file Gender Identity Not on file Sexual Orientation Not on file documented as of this encounter Plan of Treatment Not on file documented as of this encounter Procedures Procedure Name Priority Date/Time Associated Diagnosis Comments DERMATOPATHOLOGY Routine 04/02/2023 3:33 AM CDT documented in this encounter Results * DERMATOPATHOLOGY (04/02/2023 3:33 AM CDT) Case Report Dermatopathology Report Case: [id number] Authorizing Provider: Efren Ferraro MD Collected: 04/02/2023 03:33 AM Ordering Location: [facility] DermPath Lab Received: 04/03/2023 08:15 AM Pathologist: Evelyn Franz MD Specimen: Skin, right upper back 9:48 AM CDT DERMATOPATHOLOGY LABORATORY Final Diagnosis Specimen A. SKIN, right upper back: PSORIASIFORM DERMATITIS (L44.8) (see microscopic description and comment) 3 9:48 AM CDT DERMATOPATHOLOGY LABORATORY Clinical History Psoriasis vs Drug Eruption 9:48 AM CDT DERMATOPATHOLOGY LABORATORY Gross Description Specimen A: Received is one formalin filled container labeled with the patient's name and designated right upper back. The specimen consists of two shave biopsies measuring 11x8x1 and 2x2x1 mm. Jar 0. 3 9:48 AM CDT DERMATOPATHOLOGY LABORATORY Microscopic Description Specimen A. SKIN, right upper back: There is psoriasiform hyperplasia of the epidermis with focal parakeratosis and spongiosis. Significant hypogranulosis is not appreciated. There is a superficial, mainly lymphohistiocytic inflammatory infiltrate. Eosinophils are not seen. IL-36 immunostain reveals patchy staining in the superficial aspect of the epidermis. Grocott's methenamine silver (GMS) stain fails to highlight fungal elements in the available sections. COMMENT: The histological differential diagnosis includes a chronic eczematous dermatitis, which is favored; less likely a hypersensitivity reaction, such as to contact or drug, given the lack of eosinophils; and early / partially treated psoriasis, given the lack of more significant IL-36 staining. 3 9:48 AM CDT DERMATOPATHOLOGY LABORATORY Disclaimer An external and internal positive and negative controls are appropriate for the histochemical, immunohistochemical and immunofluorescence stain(s) in this case (if any), except where stated explicitly. The performance characteristics of the stain(s) cited in this report were developed and its performance characteristic determined by the Dermatopathology Laboratory at [facility], directed by Dr. Davonte Gorman. These tests need not be, and therefore are not, approved by the [place] Food and Drug Administration. The tests are used for clinical purposes. Billing Codes Specimen Charges Stain Charges 36078 1 92714 23847 1 1 3 9:48 AM CDT DERMATOPATHOLOGY LABORATORY Embedded Images 9:48 AM CDT DERMATOPATHOLOGY LABORATORY Pathology/Cytolo gy TISSUE SPECIMEN FROM SKIN / Unknown 04/02/2023 3:33 AM CDT 04/03/2023 8:15 AM CDT Efren Ferraro MD LAB - PATHOLOGY/CYTO LOGY ORDERABLES DERMATOPATHOLOGY LABORATORY [facility] - Department of Dermatology [facility] Specialized Medicine [address] [place] [address], [address] [phone] documented in this encounter Visit Diagnoses Not on filedocumented in this encounter Care Teams Support Staff Relationship Specialty Start Date End Date Loco Mccloud PA-C [address] [facility] [address] [place] [address] PCP - General Physician Alodize Machine Operator 04/09/23 documented as of this encounter
--- OUTSIDE RECORDS SUMMARY | 2025-02-17 10:46 | XMS_ITS | Encounter Summary ---
Author Organization [facility] Address [address] [place] [address] Care Team Providers Care Farmworker Vegetable Name Role Phone Loco Mccloud PA-C Primary Care Provide r Encounter Details Date Type Department Care Team (Late st Contact Info) Description 04/24/2021 Lab Requisition [facility] DermPath Lab [address] [place] [phone] [place] [address] [place] [address] Social History Tobacco Use Types Packs/Day Years Used Date Smoking Tobacco: Never Assessed Sex and Gender Information Value Date Recorded Sex Assigned at Not on file Gender Identity Not on file Sexual Orientation Not on file documented as of this encounter Plan of Treatment Not on file documented as of this encounter Procedures Procedure Name Priority Date/Time Associated Diagnosis Comments DERMPATH SLIDE CONSULT Routine 04/24/2021 12:00 AM CDT documented in this encounter Results * DERMPATH SLIDE CONSULT (04/24/2021 12:00 AM CDT) Case Report Dermatopathology Report Case: [id number] Authorizing Provider: Efren Ferraro MD Collected: 04/24/2021 12:00 AM Ordering Location: [facility] DermPath Lab Received: 04/24/2021 10:41 AM Pathologist: Tatiana Russo MD Specimen: Slide(s), Right forearm, [id number]# [id number] 5:24 PM CDT DERMATOPATHOLOGY LABORATORY Final Diagnosis Specimen A. Slide(s), Right forearm, OSC# [id number]: PSORIASIFORM DERMATITIS (L44.8) (see microscopic description and comment) 5:24 PM [facility] DERMATOPATHOLOGY LABORATORY Clinical History Materials received from: [employer] [address] [place] [id number] Received at the request of Dr. Efren Ferraro, a consult will be performed on 1 (H&E) slide(s) labeled [id number]. Bx Date: 04/18/2021 Psoriasis. All slides returned. Any additional sections, special stains or immunohistochemical stains performed by our laboratory will be kept here on file. 5:24 PM [facility] DERMATOPATHOLOGY LABORATORY Microscopic Description Specimen A. Slide(s), Right forearm, OSC# [id number]: There is psoriasiform hyperplasia of the epidermis with focal parakeratosis and spongiosis. There is a superficial, mainly lymphohistiocytic inflammatory infiltrate. Grocott's methenamine silver (GMS) stain performed on the provided block at [facility] Dermatopathology fails to highlight fungal elements in the available sections. Additional deeper sections were obtained and reviewed. COMMENT: The histological differential diagnosis includes early / partially treated psoriasis, favored given the dilated capillaries in the superficial papillary dermis, and a chronic eczematous dermatitis. 5:24 PM [facility] DERMATOPATHOLOGY LABORATORY Disclaimer An external and internal positive and negative controls are appropriate for the histochemical, immunohistochemical and immunofluorescence stain(s) in this case (if any), except where stated explicitly. The performance characteristics of the stain(s) cited in this report were developed and its performance characteristic determined by the Dermatopathology Laboratory at [facility], directed by Dr. Davonte Gorman. These tests need not be, and therefore are not, approved by the [place] Food and Drug Administration. The tests are used for clinical purposes. Billing Codes Specimen Charges Stain Charges 28360 1 74434 1 1 5:24 PM CDT DERMATOPATHOLOGY LABORATORY Embedded Images 5:24 PM [facility] DERMATOPATHOLOGY LABORATORY Pathology/Cytolog y SLIDE / Unknown 04/24/2021 04/24/2021 10:41 AM CDT Efren Ferraro MD LAB - PATHOLOGY/CYTO LOGY ORDERABLES DERMATOPATHOLOGY LABORATORY [facility] - Department of Dermatology [facility] Medicine [address] [place] [address], [address] [phone] documented in this encounter Visit Diagnoses Not on filedocumented in this encounter Care Teams Farmworker Vegetable Relationship Specialty Start Date End Date Loco Mccloud PA-C [address] [place] [address] PCP - General Physician Residential Service Technician 04/09/23 documented as of this encounter
--- OUTSIDE RECORDS SUMMARY | 2025-02-17 10:46 | XMS_ITS | Encounter Summary ---
Author Organization [facility] Health Address [address] [place] [address] Care Team Providers Care Handwriting Expert Name Role Phone Loco Mccloud PA-C Primary Care Provide r Reason for Visit * Reason Comments Refill Request Encounter Details Date Type Department Care Team (Late st Contact Info) Description 08/25/2023 Refill [facility] - Centralized Scheduling [address] [place] [phone] Tatiana Russo MD [address] [facility] [address] [place] [phone] Refill Request Social History Tobacco Use Types Packs/Day Years Used Date Smoking Tobacco: Never Assessed Sex and Gender Information Value Date Recorded Sex Assigned at Not on file Gender Identity Not on file Sexual Orientation Not on file documented as of this encounter Plan of Treatment Not on file documented as of this encounter Visit Diagnoses Diagnosis Other atopic dermatitis documented in this encounter Care Teams Handwriting Expert Relationship Specialty Start Date End Date Loco Mccloud PA-C [address] [place] [address] PCP - General Physician Armature Coil Winder 04/09/23 documented as of this encounter
[2025-02-17 10:56] LABS: Alanine Aminotransferase 31 U/L (6-50); Albumin Level 4.6 g/dL (3.5-5.1); Alkaline Phosphatase 79 U/L (38-126); Anion Gap 11 mmol/L (4-12); Aspartate Amino Transferase 28 U/L (17-59); Bilirubin,Total 0.5 mg/dL (0.2-1.3); Blood Urea Nitrogen 8 mg/dL (9-20); Calcium 9.1 mg/dL (8.4-10.2); Carbon Dioxide 25 mmol/L (22-30); Chloride 104 mmol/L (98-107); Cholesterol 169 mg/dL (0-200); Estimated Glomerular Filt Rate > 60; Glucose 110 mg/dL (65-110); HDL Direct 49 mg/dL; Potassium 4.2 mmol/L (3.4-5.0); Sodium 140 mmol/L (137-145); Triglycerides 106 mg/dL (<150)
[2025-02-17 11:07] LABS: LDL Cholesterol Direct 95 mg/dL
== END 2025-02-17 10:12 | disposition home or self-care (01) ==
LOC: ANHLAB 10:13
PROVIDERS: PCP Family Medicine; Visit Provider Student in an Organized Health Care Education/Training Program
DX: Z00.00 Encounter for general adult medical examination without abnormal findings (principal); I10 Essential (primary) hypertension; E78.5 Hyperlipidemia, unspecified; L44.0 Pityriasis rubra pilaris
CPT/HCPCS: 36415; 80053; 80061

== ENCOUNTER 2025-09-05 09:22 | Outpatient (CLI) | payer OTHER, SELFPAY ==
[2025-09-05 09:53] LABS: Hematocrit 44.5 % (42.0-52.0); Hemoglobin 14.8 g/dL (14.0-18.0); Immature Granulocyte Percent A 0.3 % (0-0.5); Lymphocytes Absolute Auto 1.90 K/mm3 (0.9-3.2); Mean Corpuscular HGB Conc 33.3 g/dl (32-36); Mean Corpuscular Hemoglobin 31.0 pg (26-34); Mean Corpuscular Volume 93.1 fl (80-100); Nucleated Red Blood Cells Absolute Auto 0.000 K/mm3 (0.0-0.012); Nucleated Red Blood Cells Perc 0.0 % (0.0-0.2); Platelet Count Result 285 k/mm3 (150-375); Red Blood Count 4.78 M/mm3 (4.6-6.20); White Blood Count 7.0 K/mm3 (4.5-10.0)
[2025-09-05 10:06] LABS: Alanine Aminotransferase 36 U/L (6-50); Albumin Level 4.6 g/dL (3.5-5.1); Alkaline Phosphatase 60 U/L (38-126); Anion Gap 8 mmol/L (4-12); Aspartate Amino Transferase 36 U/L (17-59); Bilirubin,Total 0.5 mg/dL (0.2-1.3); Blood Urea Nitrogen 11 mg/dL (9-20); Calcium 9.0 mg/dL (8.4-10.2); Carbon Dioxide 27 mmol/L (22-30); Chloride 103 mmol/L (98-107); Cholesterol 144 mg/dL (0-200); Estimated Glomerular Filt Rate > 60; Glucose 103 mg/dL (65-110); HDL Direct 51 mg/dL; Potassium 4.4 mmol/L (3.4-5.0); Sodium 138 mmol/L (137-145); Total Protein 7.8 g/dL (6.3-8.2); Triglycerides 48 mg/dL (<150)
[2025-09-05 10:08] LABS: Hemoglobin A1C 5.2 % (<5.7)
--- OUTSIDE RECORDS SUMMARY | 2025-09-05 10:15 | XMS_ITS | Encounter Summary ---
Author Organization [facility] Address [address] [facility] [place] [address] Care Team Providers Care Check Processing Clerk Name Role Phone Loco Mccloud PA-C Primary Care Provide r Encounter Details Date Type Department Care Team (Late st Contact Info) Description 04/24/2021 Lab Requisition [facility] DermPath Lab [address] [place] [address] [place] [address] [place] [address] Social History Tobacco Use Types Packs/Day Years Used Date Smoking Tobacco: Never Assessed Sex and Gender Information Value Date Recorded Sex Assigned at Not on file Legal Sex Male 10:40 AM CDT Gender Identity Not on file Sexual Orientation Not on file documented as of this encounter Plan of Treatment Not on file documented as of this encounter Procedures Procedure Name Priority Date/Time Associated Diagnosis Comments DERMPATH SLIDE CONSULT Routine 04/24/2021 12:00 AM CDT documented in this encounter Results * DERMPATH SLIDE CONSULT (04/24/2021 12:00 AM CDT) Case Report Dermatopathology Report Case: [id number] Authorizing Provider: Efren Ferraro MD Collected: 04/24/2021 12:00 AM Ordering Location: [facility] DermPath Lab Received: 04/24/2021 10:41 AM Pathologist: Tatiana Russo MD Specimen: Slide(s), Right forearm, OSC# [id number] 1 5:24 PM T DERMATOPATHOLOGY LABORATORY Final Diagnosis Specimen A. Slide(s), Right forearm, [id number]# [id number]: PSORIASIFORM DERMATITIS (L44.8) (see microscopic description and comment) 1 5:24 PM T DERMATOPATHOLOGY LABORATORY at 1724 CDT Clinical History Materials received from: [employer] [address] [place] [address] Received at the request of Dr. Efren Ferraro, a consult will be performed on 1 (H&E) slide(s) labeled [id number]. Bx Date: 04/18/2021 Psoriasis. All slides returned. Any additional sections, special stains or immunohistochemical stains performed by our laboratory will be kept here on file. 1 5:24 PM [facility] DERMATOPATHOLOGY LABORATORY Microscopic Description Specimen A. Slide(s), Right forearm, OSC# [id number]: There is psoriasiform hyperplasia of the epidermis with focal parakeratosis and spongiosis. There is a superficial, mainly lymphohistiocytic inflammatory infiltrate. Grocott's methenamine silver (GMS) stain performed on the provided block at [facility] Dermatopathology fails to highlight fungal elements in the available sections. Additional deeper sections were obtained and reviewed. COMMENT: The histological differential diagnosis includes early / partially treated psoriasis, favored given the dilated capillaries in the superficial papillary dermis, and a chronic eczematous dermatitis. 1 5:24 PM [facility] DERMATOPATHOLOGY LABORATORY Disclaimer An external and internal positive and negative controls are appropriate for the histochemical, immunohistochemical and immunofluorescence stain(s) in this case (if any), except where stated explicitly. The performance characteristics of the stain(s) cited in this report were developed and its performance characteristic determined by the Dermatopathology Laboratory at [facility], directed by Dr. Davonte Gorman. These tests need not be, and therefore are not, approved by the [place] Food and Drug Administration. The tests are used for clinical purposes. Billing Codes Specimen Charges Stain Charges 17908 1 99789 1 1 5:24 PM T DERMATOPATHOLOGY LABORATORY Embedded Images 1 5:24 PM CDT DERMATOPATHOLOGY LABORATORY Pathology/Cytolog y SLIDE / Unknown 04/24/2021 04/24/2021 10:41 AM CDT us Efren Ferraro MD LAB - PATHOLOGY/CYTOLOGY ORDERAB LES Final Result DERMATOPATHOLOGY LABORATORY [facility] - Department of Dermatology [facility] Specialized Medicine [address] [place] [address], [address] [phone] documented in this encounter Visit Diagnoses Not on filedocumented in this encounter Care Teams Check Processing Clerk Relationship Specialty Start Date End Date Loco Mccloud PA-C [address] [place], [place] [phone] PCP - General Physician Caustic Cresylate Shift Superintendent 04/09/23 documented as of this encounter
--- OUTSIDE RECORDS SUMMARY | 2025-09-05 10:15 | XMS_ITS | Encounter Summary ---
Author Organization [facility] Health Address [address] [facility] [address] Care Team Providers Care Fuse Spooler Name Role Phone Loco Mccloud PA-C Primary Care Provide r Reason for Visit * Reason Comments Refill Request Encounter Details Date Type Department Care Team (Late st Contact Info) Description 08/25/2023 Refill [facility] - Centralized Scheduling [address] [place] [phone] Tatiana Russo MD [address] [facility] [address] [place] [phone] Refill Request Social History Tobacco Use Types [...] dermatitis documented in this encounter Care Teams Fuse Spooler Relationship Specialty Start Date End Date Loco Mccloud PA-C [address] [place] [address] PCP - General Physician Production Miner 04/09/23 documented as of this encounter
--- OUTSIDE RECORDS SUMMARY | 2025-09-05 10:15 | XMS_ITS | Encounter Summary ---
Author Organization [facility] Address [address] [place] [address] Care Team Providers Care Shipping/Receiving Clerk Name Role Phone Loco Mccloud PA-C Primary Care Provide r Encounter Details Date Type Department Care Team (Late st Contact Info) Description 04/03/2023 Lab Requisition [facility] - DermPath Lab [address] [place] [id number] Efren Ferraro MD [address] [place] [address] Social History Tobacco Use Types Packs/Day Years [...] AM CDT) Case Report Dermatopathology Report Case: [id number] Authorizing Provider: Efren Ferraro MD Collected: 04/02/2023 03:33 AM Ordering Location: [facility] DermPath Lab Received: 04/03/2023 08:15 AM Pathologist: Evelyn Franz MD Specimen: Skin, right upper back 06/01/202 3 9:48 AM CDT DERMATOPATHOLOGY LABORATORY Final Diagnosis Specimen A. 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 3 9:48 AM T DERMATOPATHOLOGY LABORATORY Disclaimer An external and internal positive and negative controls are appropriate for the histochemical, immunohistochemical and immunofluorescence stain(s) in this case (if any), except where stated explicitly. The performance characteristics of the stain(s) cited in this report were developed and its performance characteristic determined by the Dermatopathology Laboratory at [facility], directed by Dr. Davonte Gorman. These tests need not be, and therefore are not, approved by the [place] Food and Drug Administration. The tests are used for clinical purposes. Billing Codes Specimen Charges Stain Charges 74835 1 [id number] 1 1 3 9:48 AM CDT DERMATOPATHOLOGY LABORATORY Embedded Images 3 9:48 AM CDT DERMATOPATHOLOGY LABORATORY Pathology/Cytolo gy TISSUE SPECIMEN FROM SKIN / Unknown 04/02/2023 3:33 AM CDT 04/03/2023 8:15 AM CDT Efren Ferraro MD LAB - PATHOLOGY/CYTOLOGY ORDERAB LES Final Result DERMATOPATHOLOGY LABORATORY [facility] - Department of Dermatology [facility] Medicine [address] [place] [address], [address] [phone] documented in this encounter Visit Diagnoses Not on filedocumented in this encounter Care Teams Shipping/Receiving Clerk Relationship Specialty Start Date End Date Loco Mccloud PA-C [address] [place] [address] PCP - General Physician Retirement Specialist 04/09/23 documented as of this encounter
--- OUTSIDE RECORDS SUMMARY | 2025-09-05 10:15 | XMS_ITS | Clinical Summary ---
Author Organization [facility] Address [address] [place] [address] Care Team Providers Care Psychology Lecturer Name Role Phone Loco Mccloud PA-C Primary Care Provide r Source Comments [facility],non-owned Affiliates and Associated Physician Practices is amultiple site organization consisting of ambulatory clinics and hospital sitesin [place], [place], [place] and [place]. This disclosure is being madepursuant to the Care Everywhere program and may not contain all information available regarding this patient. Last updated 18.[facility] Allergies No known active allergies Medications * Be aware that medications may not be up to date on this document. Alwaysverify current medications with the patient. atorvastatin (Lipitor) 10 MG tablet 3 Active lisinopril (Prinivil; Zestril) 10 MG tablet 3 Active sertraline (Zoloft) 50 MG tablet 3 Active ALPRAZolam (Xanax) 0.5 MG tablet 3 Active triamcinolone acetonide (Kenalog) 0.1 % ointment Apply to body twice daily. 30 days supply. 454 g 3 3 Active clobetasol (Temovate) 0.05 % ointment Apply to affected area on the lower legs twice daily. 30 days supply. 60 g 5 3 Active dupilumab (Dupixent) 300 MG/2ML prefilled penIndications :Atopic Dermatitis Inject 600 mg subcutaneously on Day 1 Reasons: Atopic Dermatitis 4 mL 3 Active dupilumab (Dupixent) 300 MG/2ML prefilled penIndications :Atopic Dermatitis Inject 300 mg subcutaneously every 2 weeks starting on Day 15 Reasons: Atopic Dermatitis 4 mL 6 3 Active Social History Tobacco Use Types Packs/Day [...] 2016 ZOSTER VACCINE (1 of 2) 2016 DEPRESSION SCREENING 11/09/2024 COVID-19 VACCINE (1 - 2023-2 5 season) 2025 INFLUENZA VACCINE (#1) 2025 HIB VACCINE Aged Out No longer [...] on patient's age to complete this topic Insurance Care Teams Psychology Lecturer Relationship Specialty Start Date End Date Loco Mccloud PA-C [address] [place] [address] PCP - General Physician Morale Officer 04/09/23
[2025-09-05 10:23] LABS: Free T4 Free Thyroxine 0.89 ng/dL (0.78-2.19)
[2025-09-05 10:48] LABS: Prostate Specific Antigen 0.7 ng/mL (< OR = 4.0); Thyroid Stimulating Hormone 1.070 uIU/mL (0.465-4.680)
[2025-09-05 11:23] LABS: Vitamin B12 349.0 pg/mL (239-931)
== END 2025-09-05 09:23 | disposition home or self-care (01) ==
LOC: ANHLAB 09:24
PROVIDERS: PCP Student in an Organized Health Care Education/Training Program; Visit Provider Student in an Organized Health Care Education/Training Program
DX: Z12.5 Encounter for screening for malignant neoplasm of prostate (principal); Z13.1 Encounter for screening for diabetes mellitus; F41.9 Anxiety disorder, unspecified; I10 Essential (primary) hypertension; E78.5 Hyperlipidemia, unspecified; R53.83 Other fatigue; Z78.9 Other specified health status
CPT/HCPCS: 36415; 80053; 80061; 82607; 82746; 83036; 84153; 84439; 84443; 85025; G0103